=== PATIENT | female | born 1985 | race Caucasian/White ===

== ENCOUNTER 2020-07-23 15:13 | Emergency (ER) | payer OTHER ==
[~2020-07-23 15:13] MED LIST: COLACE 100MG C100 MG PO; IBUPROFEN600 MG PO; NORCO 10-325 T1 EACH PO; ZOFRAN ODT 4 MG4 MG PO
[2020-07-23 17:30] LABS: RED BLOOD COUNT 4.2 M/UL (4.00-5.10); WHITE BLOOD COUNT 8.4 K/UL (4.5-11.0)
[2020-07-23 17:47] LABS: BUN/CREATININE RATIO 34 (0-10)
== END 2020-07-23 22:26 | disposition home or self-care (01) ==
LOC: ER1 15:13
PROVIDERS: Physician Assistant
DX: N64.4 Mastodynia (principal); F17.210 Nicotine dependence, cigarettes, uncomplicated
CPT/HCPCS: 71045; 71275; 80048; 84703; 85025; 85379; 99285; Q9967

== ENCOUNTER 2021-01-05 08:13 | Emergency (ER) | payer BC, OTHER ==
[2021-01-05] MEDS ORDERED: NAPROSYN500 MG PO (08:49)
== END 2021-01-05 09:22 | disposition home or self-care (01) ==
LOC: ER1 08:13
DX: M25.551 Pain in right hip (principal); R20.2 Paresthesia of skin; F17.210 Nicotine dependence, cigarettes, uncomplicated; X50.9XXA Other and unspecified overexertion or strenuous movements or postures, initial encounter; Y92.009 Unspecified place in unspecified non-institutional (private) residence as the place of occurrence of the external cause
CPT/HCPCS: 96372; 99283; J1100; J1885

== ENCOUNTER 2021-09-27 08:38 | Emergency (ER) | payer BC, OTHER ==
[~2021-09-27 08:38] MED LIST changes: +CIPRO500 MG PO; +METRONIDAZOLE500 MG PO; +NAPROSYN500 MG PO
[2021-09-27 10:10] LABS: HEMOGLOBIN 13.7 gm/dl (12.3-15.3); RED BLOOD COUNT 4.8 M/UL (4.00-5.10); WHITE BLOOD COUNT 8.4 K/UL (4.5-11.0)
[2021-09-27 10:57] LABS: BUN/CREATININE RATIO 28 (0-10)
== END 2021-09-27 13:24 | disposition home or self-care (01) ==
LOC: ER1 08:38
PROVIDERS: Emergency Medicine
DX: K52.9 Noninfective gastroenteritis and colitis, unspecified (principal); F17.210 Nicotine dependence, cigarettes, uncomplicated
CPT/HCPCS: 80053; 81001; 83605; 83690; 85025; 86140; 93005; 96374; 99284; J1885

== ENCOUNTER → 2021-12-03 | Outpatient (CLI) | payer BC, OTHER | LOC: KOH-I 13:00 | DX: R13.19 Other dysphagia (principal); E04.2 Nontoxic multinodular goiter | CPT/HCPCS: 76536 ==